=== PATIENT | female | born 1995 | race Caucasian/White ===

== ENCOUNTER → 2020-07-19 | Outpatient (CLI) | payer OTHER ==
[2020-07-19 11:52] LABS: URINE PREG TEST NEGATIVE (NEGATIVE)
== END ==
LOC: M LAB 10:59
PROVIDERS: ATTEND Orthopaedic Surgery
DX: S82.851D Displaced trimalleolar fracture of right lower leg, subsequent encounter for closed fracture with routine healing (principal)

== ENCOUNTER 2020-08-30 23:47 | Emergency (ER) | payer OTHER ==
[~2020-08-30] VITALS: Ht 175.3 cm; Wt 97.6 kg
[2020-08-31 00:57] VITALS: BP 125/72
[2020-08-31] MEDS ORDERED: LIDOCAINE 1% SDV 5ML VIAL DILUENT ONE (01:10)
[2020-08-31] MEDS ORDERED: cefTRIAXone SOD 2 GM VIAL (J0696 PER 250MG) IM ONE (01:10)
[2020-08-31] MEDS ORDERED: CIPR500T39 PO ×2 (01:13→01:14)
[2020-08-31] MEDS ORDERED: PYRI1TAB5 PO (01:14)
[2020-08-31] MEDS ORDERED: PHENAZOPYRIDINE 100 MG TAB PO ONE (01:35)
== END 2020-08-31 01:46 | disposition home or self-care (01) ==
LOC: M ED 23:47
DX: N30.90 Cystitis, unspecified without hematuria (principal); F17.210 Nicotine dependence, cigarettes, uncomplicated
CPT/HCPCS: 36415; 80047; 81001; 84702; 87088; 87186; 96372; 99283; J0696

== ENCOUNTER → 2020-11-04 | Outpatient (CLI) | payer BC, OTHER ==
[~2020-11-04] MED LIST: CIPR500T39 PO; PYRI1TAB5 PO
--- NOTE | 2020-11-04 10:59 | REP ---
INDICATION: RT ANKLE DISPL TRIMALLEOL FX ? NON UNION MED MALLE. COMPARISON: None. TECHNIQUE: 1 x 1 mm helical technique with sagittal and coronal reconstructions. 3D imaging was also obtained. FINDINGS: There is beam hardening spray artifact arising from in internal fixation plate about the distal fibula which is a fixed by 6 fixing screws. An additional affixing screw is seen affixing a medial malleolar fracture. Alignment is near anatomical. There is a smoothly marginated corticated ossific density anterior to the 5th distal affixing screw. There is some lucency seen along the superior anterior margin of the old medial malleolar fracture which is well corticated. There is no evidence of an acute fracture. The mortise is intact. There is some evidence of bony demineralization. IMPRESSION: 1. Status post ORIF with persistent lucencies as described above. 2. 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 3. Other findings as described above. <Electronically signed by Modesto Adorno > 11/04/20 [id number]
== END ==
LOC: M PLAIMG 09:55
PROVIDERS: ATTEND Physician Assistant
DX: S82.851D Displaced trimalleolar fracture of right lower leg, subsequent encounter for closed fracture with routine healing (principal)

== ENCOUNTER → 2021-06-01 | Outpatient (CLI) | payer BC ==
[2021-06-01 19:25] LABS: BLOOD UREA NITROGEN 8 MG/DL (7-18); CALCIUM LEVEL 8.6 MG/DL (8.5-10.1); CARBON DIOXIDE LEVEL 27 MEQ/L (21-32); CHLORIDE LEVEL 110 MEQ/L (98-107); CREATININE FOR GFR 0.63 MG/DL (0.55-1.30); GLOMERULAR FILTRATION RATE > 60.0 (>60); GLUCOSE, FASTING 76 MG/DL (70-100); POTASSIUM SERUM 4.1 MEQ/L (3.5-5.1); SODIUM LEVEL 139 MEQ/L (136-145)
== END ==
LOC: M LAB 18:12
PROVIDERS: ATTEND Physician Assistant
DX: U07.1 COVID-19 (principal)

== ENCOUNTER → 2021-10-05 | Outpatient (CLI) | payer BC | LOC: M WHC 08:03 | DX: R10.2 Pelvic and perineal pain (principal) ==

== ENCOUNTER → 2021-10-11 | Outpatient (REF) | payer BC ==
[2021-10-11 15:10] LABS: HEMATOCRIT 41.6 % (36.0-47.0); HEMOGLOBIN 13.7 g/dl (12.0-15.5); MEAN CORPUSCULAR HGB CONC 32.9 g/dl (32.0-36.5); MEAN CORPUSCULAR VOLUME 91.2 fl (80.0-96.0); PLATELET COUNT, AUTOMATED 253 10^3/uL (150-450); RED BLOOD COUNT 4.56 10^6/uL (4.00-5.40)
[2021-10-11 15:49] LABS: ALBUMIN 3.8 GM/DL (3.2-5.2); ALT/SGPT 21 U/L (12-78); BILIRUBIN,TOTAL 0.2 MG/DL (0.2-1.0); BLOOD UREA NITROGEN 8 MG/DL (7-18); CALCIUM LEVEL 9.4 MG/DL (8.5-10.1); CARBON DIOXIDE LEVEL 25 MEQ/L (21-32); CHLORIDE LEVEL 106 MEQ/L (98-107); CREATININE FOR GFR 0.56 MG/DL (0.55-1.30); FREE T4 0.79 NG/DL (0.76-1.46); GLOMERULAR FILTRATION RATE > 60.0 (>60); GLUCOSE, FASTING 70 MG/DL (70-100); POTASSIUM SERUM 4.2 MEQ/L (3.5-5.1); SODIUM LEVEL 137 MEQ/L (136-145); TOTAL PROTEIN 6.8 GM/DL (6.4-8.2)
[2021-10-11 16:07] LABS: FOLATE 7.7 NG/ML; VITAMIN B12 LEVEL 410 PG/ML
== END ==
LOC: M SFHCADAM 13:44
PROVIDERS: ATTEND Physician Assistant
DX: R20.2 Paresthesia of skin (principal); M54.2 Cervicalgia; G43.909 Migraine, unspecified, not intractable, without status migrainosus

== ENCOUNTER → 2021-10-18 | Outpatient (CLI) | payer BC | LOC: M WHC 07:14 | PROVIDERS: ATTEND Nurse Practitioner Family | DX: N83.292 Other ovarian cyst, left side (principal) ==

== ENCOUNTER → 2021-11-02 | Outpatient (CLI) | payer BC ==
[~2021-11-02] MED LIST changes: +PROHANCE 279.3MG/ML 15ML VIAL ONE; +PROHANCE 279.3MG/ML 5ML VIAL ONE
== END ==
LOC: M PLAIMG 08:20
PROVIDERS: ATTEND Physician Assistant
DX: R20.2 Paresthesia of skin (principal); M54.2 Cervicalgia; G43.909 Migraine, unspecified, not intractable, without status migrainosus
CPT/HCPCS: 70553; A9576

== ENCOUNTER → 2022-03-22 | Outpatient (CLI) | payer BC ==
[~2022-03-22] MED LIST changes: -PROHANCE 279.3MG/ML 15ML VIAL ONE; -PROHANCE 279.3MG/ML 5ML VIAL ONE
[2022-03-22 08:48] LABS: GLUCOSE,RANDOM 89 MG/DL (LESS THAN 200)
[2022-03-22 08:51] LABS: THYROID STIMULATING HORMONE 3.231 uIU/ML (0.55-4.78)
[2022-03-22 08:52] LABS: LUTEINIZING HORMONE 4.1 mIU/ML; PROLACTIN 9.43 NG/ML
[2022-03-22 08:53] LABS: FOLLICLE STIMULATING HORMONE 6.2 mIU/ML; TESTOSTERONE 25 NG/DL (14-76)
[2022-03-22 09:15] LABS: HCG, SERUM QUALITATIVE NEGATIVE (NEGATIVE)
== END ==
LOC: M LAB 07:35
PROVIDERS: ATTEND Obstetrics & Gynecology Obstetrics
DX: N91.1 Secondary amenorrhea (principal); Z71.2 Person consulting for explanation of examination or test findings

== ENCOUNTER → 2022-10-31 | Outpatient (REF) | payer BC | LOC: M LAB REF 22:19 | PROVIDERS: ATTEND Physician Assistant | DX: B34.9 Viral infection, unspecified (principal) ==

== ENCOUNTER → 2022-11-20 | Outpatient (REF) | payer BC | LOC: M LAB REF 21:29 | PROVIDERS: ATTEND Physician Assistant | DX: J02.9 Acute pharyngitis, unspecified (principal) ==

== ENCOUNTER → 2023-05-27 | Outpatient (CLI) | payer BC ==
[2023-05-27 18:05] LABS: BASO % 0.3 % (0.0-1.0); EOS # 0.1 10^3/uL (0.0-0.5); EOS % 0.8 % (0.0-3.0); HEMATOCRIT 36.1 % (36.0-47.0); HEMOGLOBIN 12.3 g/dl (12.0-15.5); LYMPH # 2.5 10^3/uL (1.5-5.0); LYMPH % 26.8 % (24.0-44.0); MEAN CORPUSCULAR HEMOGLOBIN 30.3 pg (27.0-33.0); MEAN CORPUSCULAR HGB CONC 34.1 g/dl (32.0-36.5); MEAN CORPUSCULAR VOLUME 88.9 fl (80.0-96.0); MONO # 0.4 10^3/uL (0.0-0.8); MONO % 4.4 % (2.0-8.0); NEUTROPHILS # 6.4 10^3/uL (1.5-8.5); NEUTROPHILS % 67.4 % (36.0-66.0); PLATELET COUNT, AUTOMATED 234 10^3/uL (150-450); RED BLOOD COUNT 4.06 10^6/uL (4.00-5.40); WHITE BLOOD COUNT 9.5 10^3/uL (4.0-10.0)
[2023-05-27 18:30] LABS: TOTAL 25(OH) VITAMIN D 21.4 NG/ML (20.0-100.0)
[2023-05-27 18:32] LABS: FREE T4 0.92 NG/DL (0.89-1.76); THYROID STIMULATING HORMONE 1.061 uIU/ML (0.55-4.78)
[2023-05-27 18:55] LABS: HIV 1&2 SCREEN NEGATIVE (NEGATIVE)
[2023-05-27 19:03] LABS: HEPATITIS C VIRUS ABY INDEX < 0.02 INDEX (<0.8)
== END ==
LOC: M LABDRWAD 15:23
PROVIDERS: ATTEND Obstetrics & Gynecology
DX: Z34.81 Encounter for supervision of other normal pregnancy, first trimester (principal)

== ENCOUNTER 2023-06-30 18:06 | Emergency (ER) | payer BC, OTHER ==
[~2023-06-30] VITALS: Ht 175.3 cm; Wt 104.5 kg
[2023-06-30 18:06] VITALS: BP 134/81; TEMP 98.6; O2SAT 98
[2023-06-30] MEDS ORDERED: D 50CAP2 (18:13)
[2023-06-30] MEDS ORDERED: ALBU2.5V10 (18:13)
[2023-06-30] MEDS ORDERED: D-50CAP (18:13)
[2023-06-30] MEDS: IPRATROPIUM 0.5MG/ALBUTEROL 2.5MG INH SOL UD 3ML (DUONEB) NEB ONE (21:06)
== END 2023-06-30 21:34 | disposition home or self-care (01) ==
LOC: M ED 18:06
DX: B34.8 Other viral infections of unspecified site (principal); J45.909 Unspecified asthma, uncomplicated; Z79.52 Long term (current) use of systemic steroids; Z79.899 Other long term (current) drug therapy

== ENCOUNTER → 2023-08-27 | Outpatient (REF) | payer OTHER, MEDICAID ==
[~2023-08-27] MED LIST changes: +ALBU2.5V10; +D 50CAP2; +D-50CAP
[2023-08-27 18:53] LABS: BASO % 0.2 % (0.0-1.0); EOS # 0.1 10^3/uL (0.0-0.5); HEMATOCRIT 35.1 % (36.0-47.0); HEMOGLOBIN 11.9 g/dl (12.0-15.5); LYMPH # 2.2 10^3/uL (1.5-5.0); LYMPH % 17.3 % (24.0-44.0); MEAN CORPUSCULAR HEMOGLOBIN 31.6 pg (27.0-33.0); MEAN CORPUSCULAR HGB CONC 33.9 g/dl (32.0-36.5); MEAN CORPUSCULAR VOLUME 93.1 fl (80.0-96.0); MONO # 0.6 10^3/uL (0.0-0.8); MONO % 4.5 % (2.0-8.0); NEUTROPHILS # 9.5 10^3/uL (1.5-8.5); PLATELET COUNT, AUTOMATED 204 10^3/uL (150-450); RED BLOOD COUNT 3.77 10^6/uL (4.00-5.40); WHITE BLOOD COUNT 12.5 10^3/uL (4.0-10.0)
[2023-08-27 19:26] LABS: THYROID STIMULATING HORMONE 2.368 uIU/ML (0.55-4.78); THYROXINE (T4) 8.9 UG/DL (4.5-10.9)
[2023-08-27 19:27] LABS: TOTAL 25(OH) VITAMIN D 34.7 NG/ML (20.0-100.0)
[2023-08-27 19:28] LABS: FREE T4 0.76 NG/DL (0.89-1.76)
[2023-08-27 19:30] LABS: FREE T3 2.7 PG/ML (2.3-4.2)
== END ==
LOC: M LABDRWAD 17:32
PROVIDERS: ATTEND Physician Assistant
DX: Z34.82 Encounter for supervision of other normal pregnancy, second trimester (principal)

== ENCOUNTER → 2023-12-04 | Outpatient (REF) | payer OTHER, MEDICAID | LOC: M LABDRWAD 14:56 | PROVIDERS: ATTEND Obstetrics & Gynecology Obstetrics | DX: Z34.83 Encounter for supervision of other normal pregnancy, third trimester (principal) ==